=== PATIENT | female | born 1945 | race Asian ===

== ENCOUNTER 2017-08-30 18:03 | Emergency (ER) | payer MEDICARE, OTHER ==
[~2017-08-30] VITALS: Ht 149.9 cm; Wt 53.2 kg
[~2017-08-30 18:03] MED LIST: ALOG25TA PO; FENO160 PO; FISH1CAP49 PO; LOSA50TA37 PO; METF500T4 PO; MULT-1259 PO
[2017-08-30] MEDS ORDERED: INSLAN SQ (18:17)
[2017-08-30 18:22] LABS: GLUCOSE,POINT OF CARE 210 MG/DL (70-110)
[2017-08-30] MEDS ORDERED: ACETAMINOPHEN/CODEINE 300-30 MG TABLET PO ONE (19:30)
[2017-08-30] MEDS ORDERED: PENICILLIN V POTASSIUM 500 MG TABLET PO ONE (19:30)
[2017-08-30 20:42] VITALS: BP 137/71
== END 2017-08-30 20:45 | disposition home or self-care (01) ==
LOC: EMS 18:03
DX: J02.9 Acute pharyngitis, unspecified (principal); E11.9 Type 2 diabetes mellitus without complications; I10 Essential (primary) hypertension; Z79.4 Long term (current) use of insulin
CPT/HCPCS: 82962; 99283